=== PATIENT | female | born 2000 | race American Indian/Alaskan Native ===

== ENCOUNTER 2021-04-29 18:18 | Emergency (ER) | payer OTHER ==
--- NOTE | 2021-04-29 19:52 | Emergency Department Report ---
ED ENT HPI - General Chief complaint: Sore Throat Stated complaint: SOB, TIGHT CHEST, AND SHAKING Time Seen by Provider: 04/29/21 19:39 Source: patient Mode of arrival: Ambulatory Limitations: No Limitations - History of Present Illness Initial comments: 20-year-old female who denies any significant past medical history presents to the ER today with complaints of chest tightness and difficulty swallowing. Patient states that around 530 she was sitting in the hairdresser chair getting ready to have her hair braiding when suddenly she started having difficulty swallowing, it felt like there was something in her throat, she was having chest tightness and she was started shaking all over. Reports some discomfort with swallowing, but she states that she just feels like there is a fullness in her throat. She denies any facial swelling, lip swelling or tongue swelling. She denies any trismus or drooling. She denies any rash or any extremity swelling. She denies any itching. She denies any cough or wheezing. She denies any new medications, soaps, lotions, and denies any other new contacts. She states that the hairdresser had just started parting her hair and hadn't use any hair products. She denies any associated nausea, vomiting, abdominal pain or symptoms. Denies any calf pain, lower extremity swelling. She denies tobacco use. She states that she drinks alcohol occasionally. She denies any illicit drug use. She denies any history of anxiety or any other psych disorders at this time. She denies any history of PE, DVT or any risk factors for PE or DVT. complaint: sore throat -: Sudden, This afternoon (1730) - Related Data Allergies Allergy/AdvReac Type Severity Reaction Status Date / Time No Known Allergies Allergy Verified 04/29/21 18:22 ED Dental HPI - General Chief complaint: Sore Throat Stated complaint: SOB, TIGHT CHEST, AND SHAKING Time Seen by Provider: 04/29/21 19:39 Source: patient Mode of arrival: Ambulatory Limitations: No Limitations - Related Data Allergies Allergy/AdvReac Type Severity Reaction Status Date / Time No Known Allergies Allergy Verified 04/29/21 18:22 ED Review of Systems ROS: Stated complaint: SOB, TIGHT CHEST, AND SHAKING Other details as noted in HPI Comment: All other systems reviewed and negative Constitutional: denies: chills, fever Eyes: denies: eye pain, eye discharge, vision change ENT: throat pain, other (difficulty swallow). denies: ear pain, dental pain, hearing loss, epistaxis, congestion Respiratory: denies: cough, orthopnea, shortness of breath, SOB with exertion, SOB at rest, stridor, wheezing Cardiovascular: chest pain (cheat tightness). denies: palpitations, dyspnea on exertion, orthopnea, edema, syncope, paroxysmal nocturnal dyspnea Endocrine: no symptoms reported Gastrointestinal: denies: abdominal pain, nausea, vomiting, diarrhea, constipation, hematemesis, melena, hematochezia Genitourinary: denies: urgency, dysuria, discharge Musculoskeletal: denies: back pain, joint swelling, arthralgia Skin: denies: rash, lesions, change in color, change in hair/nails, pruritus, other Neurological: denies: headache, weakness, paresthesias, confusion, abnormal gait, vertigo Psychiatric: denies: anxiety, depression, auditory hallucinations, homicidal thoughts, suicidal thoughts Hematological/Lymphatic: denies: easy bleeding, easy bruising, swollen glands ED Past Medical Hx - Past Medical History Previous Medical History?: No - Surgical History Past Surgical History?: No ED Physical Exam - General Limitations: No Limitations General appearance: alert, in no apparent distress - Head Head exam: Present: atraumatic, normocephalic, normal inspection - Eye Eye exam: Present: normal appearance, PERRL, EOMI Pupils: Present: normal accommodation - ENT ENT exam: Present: normal exam, mucous membranes moist - Neck Neck exam: Present: normal inspection, full ROM. Absent: meningismus - Respiratory Respiratory exam: Present: normal lung sounds bilaterally. Absent: respiratory distress, wheezes, rales, rhonchi, chest wall tenderness - Cardiovascular Cardiovascular Exam: Present: regular rate, normal rhythm, normal heart sounds - Neurological Exam Neurological exam: Present: alert, oriented X3, CN II-XII intact, normal gait - Psychiatric Psychiatric exam: Present: normal affect, normal mood - Skin Skin exam: Present: intact. Absent: rash ED Course Vital Signs 04/29/21 18:22 Temperature 97.9 F Pulse Rate 84 Respiratory 16 Rate Blood Pressure 132/63 [Left] O2 Sat by Pulse 100 Oximetry ED Medical Decision Making - Lab Data Result diagrams: 04/29/21 20:23 04/29/21 20:23 - EKG Data Rate: normal (59) No standard instances Rhythm: arrhythmia (non specific ) - EKG Data Interpretation: no acute changes - Radiology Data Radiology results: report reviewed Patient: GRACE BLANKENSHIP MR#: [id number] : 2000 Acct:[id number] Age/Sex: 20 / F ADM Date: 04/29/21 Loc: ED Attending Dr: Ordering Physician: NASEEM SANCHEZ Date of Service: 04/29/21 Procedure(s): XR chest routine 2V Accession Number(s): [id number] cc: NASEEM SANCHEZ Fluoro Time In Minutes: XR chest routine 2V INDICATION / CLINICAL INFORMATION: Chest tighthness. COMPARISON: None available. FINDINGS: SUPPORT DEVICES: None. HEART /PULMONARY VASCULATURE: No significant abnormality. LUNGS / PLEURA: No significant pulmonary or pleural abnormality. No pneumothorax. ADDITIONAL FINDINGS: No significant additional findings. IMPRESSION: 1. No acute findings. Signer Name: Betty Hernandez MD Signed: 04/29/2021 8:15 PM Workstation Name: [id number] Transcribed By: JS Dictated By: BETTY HERNANDEZ MD Electronically Authenticated By: BETTY HERNANDEZ MD Signed Date/Time: 04/29/212014 Patient: GRACE BLANKENSHIP MR#: [id number] : 2000 Acct:[id number] Age/Sex: 20 / F ADM Date: 04/29/21 Loc: ED Attending Dr: Ordering Physician: NASEEM SANCHEZ Date of Service: 04/29/21 Procedure(s): XR neck soft tissue Accession Number(s): [id number] cc: NASEEM SANCHEZ Fluoro Time In Minutes: NECK SOFT TISSUE 2 VIEW(S) INDICATION / CLINICAL INFORMATION: difficulty swallowing COMPARISON: None available. FINDINGS: EPIGLOTTIS: No significant abnormality. RETROPHARYNGEAL SOFT TISSUES: No significant abnormality. AIRWAY: No significant abnormality. RADIOPAQUE FOREIGN BODY: None. SKELETAL SYSTEM: No significant abnormality. ADDITIONAL FINDINGS: None. IMPRESSION: 1. No significant abnormality. Signer Name: Betty Hernandez MD Signed: 04/29/2021 8:15 PM Workstation Name: [id number] Transcribed By: MINNA Dictated By: BETTY HERNANDEZ MD Electronically Authenticated By: BETTY HERNANDEZ MD Signed Date/Time: 04/29/212014 DD/ 14 TD/TT: - Medical Decision Making 2137; All labs reviewed and unremarkable. EKG shows nonspecific sinus a rrhythmia, but no stable or acute ischemic changes. Chest x-ray shows nothing acute. Soft tissue neck shows nothing acute. Patient currently sitting in the chair, she is not in any acute pain or respiratory distress. She has no trismus or drooling on exam. He is controlling her secretions well. No stridor. Airway appears to be intact. Vital signs are stable. At this time I do not suspect PE as she has a PERC score of 0, patient also does not have any risk factors for coronary artery disease and therefore I do not believe that this is related to unstable angina or any other acute cardiopulmonary emergencies requiring any additional testing or admission or specialist consult at this t argenis. Suspected diagnosis at this time is anxiety reaction versus possible allergic reaction. Discussed all lab results including x-ray and EKG results with patient. While discussing results with patient. She did finally admitted that she has had the symptoms before in the past but not as bad. Informed her that she will need to follow-up with her PCP, this could be related to anxiety, her PCP can also refer her to claims director for allergy testing if allergic reaction is suspected. Patient expressed understanding of all instructions and agree with plan. Patient stable at time of discharge. Critical care attestation.: If time is entered above; I have spent that time in minutes in the direct care of this critically ill patient, excluding procedure time. ED Disposition Clinical Impression: Pharyngitis, Feeling of chest tightness, Dysphagia, Anxiety reaction Disposition: HOME / SELF CARE / HOMELESS Is pt being admited?: No Does the pt Need Aspirin: No Condition: Stable Instructions: Panic Attack, [id number]-[id number], Dysphagia, Nonspecific Chest Pain, Adult, [id number], Pharyngitis, [id number] Additional Instructions: Exact cause of your symptoms unclear but allergic reaction is in the differential of possibilities and therefore recommend that you take Benadryl every 6 hours as needed. I do recommend close follow-up with your primary care doctor this week or next week. Return to the ER if your symptoms changes or worsens in any way. Referrals: CARLYN KAMINSKI MD [Staff Physician] - 3-5 Days [facility] [Provider Group] - 3-5 Days Forms: Work/School Release Form(ED) Time of Disposition: 21:39
[2021-04-29] MEDS ORDERED: diphenhydrAMINE 25 MG CAP PO ONE (19:59)
--- NOTE | 2021-04-29 20:19 | XRay Report ---
NECK SOFT TISSUE 2 VIEW(S) INDICATION / CLINICAL INFORMATION: difficulty swallowing COMPARISON: None available. FINDINGS: EPIGLOTTIS: No significant abnormality. RETROPHARYNGEAL SOFT TISSUES: No significant abnormality. AIRWAY: No significant abnormality. RADIOPAQUE FOREIGN BODY: None. SKELETAL SYSTEM: No significant abnormality. ADDITIONAL FINDINGS: None. IMPRESSION: 1. No significant abnormality. Signer Name: Trey Hernandez MD Signed: 04/29/2021 8:15 PM Workstation Name: [id number]
--- NOTE | 2021-04-29 20:20 | XRay Report ---
XR chest routine 2V INDICATION / CLINICAL INFORMATION: Chest tighthness. COMPARISON: None available. FINDINGS: SUPPORT DEVICES: None. HEART /PULMONARY VASCULATURE: No significant abnormality. LUNGS / PLEURA: No significant pulmonary or pleural abnormality. No pneumothorax. ADDITIONAL FINDINGS: No significant additional findings. IMPRESSION: 1. No acute findings. Signer Name: Trey Hernandez MD Signed: 04/29/2021 8:15 PM Workstation Name: [id number]
[2021-04-29 20:54] LABS: Basophils % (Auto) 0.2 % (0.0-1.8); Eosinophils % (Auto) 0.3 % (0.0-4.3); Hematocrit 40.3 % (30.3-42.9); Hemoglobin 14.1 gm/dl (10.1-14.3); Lymphocytes # (Auto) 1.4 K/mm3 (1.2-5.4); Lymphocytes % (Auto) 13.8 % (13.4-35.0); Mean Corpuscular HGB Conc 35 % (30-34); Mean Corpuscular Volume 89 fl (79-97); Monocytes # (Auto) 0.6 K/mm3 (0.0-0.8); Monocytes % (Auto) 5.8 % (0.0-7.3); Platelet Count 252 K/mm3 (140-440); Red Blood Count 4.51 M/mm3 (3.65-5.03); Red Cell Distribution Width 12.3 % (13.2-15.2)
[2021-04-29 21:01] LABS: Alanine Aminotransferase 13 units/L (7-56); Albumin 4.5 g/dL (3.9-5); Blood Urea Nitrogen 12 mg/dL (7-17); Calcium 9.2 mg/dL (8.4-10.2); Hemolysis Index 5
[2021-04-29 21:10] LABS: BUN/Creatinine Ratio 17
[2021-04-29 22:56] VITALS: BP 131/63
--- NOTE | 2021-04-30 10:36 | Electrocardiograph Report ---
[facility] Test Date: 2021-04-29 Test Time: 21:21:32 Pat Name: GRACE BLANKENSHIP Department: Room: Gender: F Messenger Copy: NURSE : 2000 Requested By: NASEEM SANCHEZ Order Number: [id number] Reading MD: Mo Narayanan Measurements Intervals [place] Rate: 59 P: 43 GA: 127 QRS: 92 QRSD: 92 T: 65 QT: 409 QTc: 407 Interpretive Statements Sinus arrhythmia ST elev, probable normal early repol pattern No previous ECG available for comparison Electronically Signed On 04-30-2021 10:36:12 EDT by Mo Narayanan
== END 2021-04-29 22:49 | disposition home or self-care (01) ==
LOC: ED 18:18
DX: J02.9 Acute pharyngitis, unspecified (principal); R07.89 Other chest pain; F41.9 Anxiety disorder, unspecified; R13.10 Dysphagia, unspecified
CPT/HCPCS: 36415; 70360; 71046; 80053; 84443; 85025; 87116; 87430; 93005; 99284